=== PATIENT | male | born 1975 | race African-American/Black ===

== ENCOUNTER 2024-12-17 14:16 | Emergency (ER) | payer BC ==
[~2024-12-17] VITALS: Ht 170.2 cm; Wt 83.9 kg
[2024-12-17] MEDS ORDERED: LIDOCAINE VISCOUS 2% UD 15 ML UDC ONE (14:45)
[2024-12-17] MEDS ORDERED: KETOROLAC TROMETHAMINE 15 MG/ML VIAL ONE (14:45)
[2024-12-17] MEDS ORDERED: MAG HYDROX/AL HYDROX/SIMETH 30 ML UDC ONE (14:45)
[2024-12-17] MEDS ORDERED: FAMOTIDINE/PF INJ 20 MG/2 ML VIAL IV ONE (14:45)
[2024-12-17] MEDS: FAMOTIDINE/PF INJ 20 MG/2 ML VIAL IV ONE (14:50)
[2024-12-17] MEDS: KETOROLAC TROMETHAMINE 15 MG/ML VIAL IV ONE (14:54)
[2024-12-17] MEDS: MAG HYDROX/AL HYDROX/SIMETH 30 ML UDC PO ONE (14:54)
[2024-12-17] MEDS: LIDOCAINE VISCOUS 2% UD 15 ML UDC MM ONE (14:54)
[2024-12-17 14:59] LABS: BASOPHILS # (AUTO) 0.1 K/uL (0.0-0.2); BASOPHILS % (AUTO) 0.8 % (0.0-2.0); EOSINOPHILS # (AUTO) 0.2 K/uL (0.0-0.7); EOSINOPHILS % (AUTO) 2.1 % (0.0-6.0); HEMATOCRIT 47 % (39-51); HEMOGLOBIN 15.9 g/dL (13.5-17.5); LYMPHOCYTES # (AUTO) 2.9 K/uL (0.8-4.8); MEAN CORPUSCULAR HEMOGLOBIN 31 PG (26.0-33.0); MEAN CORPUSCULAR HGB CONC 34 g/dl (31.0-36.0); MEAN CORPUSCULAR VOLUME 93 fL (80-96); MONOCYTES # (AUTO) 0.7 K/uL (0.1-1.30); MONOCYTES % (AUTO) 8.5 % (2.0-12.0); NEUTROPHILS # (AUTO) 4.4 K/uL (1.8-8.9); NEUTROPHILS % (AUTO) 53.6 % (43.0-81.0); PLATELET COUNT (AUTO) 248 K/uL (150-450); RED BLOOD CELL COUNT(AUTO) 5.06 MIL/uL (4.5-6.0); RED CELL DISTRIBUTION WIDTH 15.1 % (11.5-15.0); WHITE BLOOD COUNT (AUTO) 8.2 K/uL (4.3-11.0)
[2024-12-17 15:11] LABS: CALCIUM, SERUM 9.5 mg/dL (8.5-10.1); CREATININE 1.3 mg/dL (0.6-1.3); POTASSIUM 4.1 mmol/L (3.5-5.1)
[2024-12-17 15:17] LABS: ALBUMIN 4.1 g/dL (3.4-5.0); BILIRUBIN,DIRECT 0.2 mg/dL (0.0-0.2); BILIRUBIN,TOTAL 0.9 mg/dL (0.2-1.0); TOTAL PROTEIN, SERUM 8.5 g/dL (6.4-8.2)
[2024-12-17 16:12] LABS: APPEARANCE,URINE CLEAR (CLEAR); BILIRUBIN,URINE NEGATIVE (NEGATIVE); BLOOD, URINE NEGATIVE Ery/uL (NEGATIVE); COLOR,URINE YELLOW (YELLOW); KETONES,URINE TRACE mg/dL (NEGATIVE); LEUKOCYTE ESTERASE ,URINE NEGATIVE (NEGATIVE); NITRITE, URINE NEGATIVE (NEGATIVE); PROTEIN,URINE NEGATIVE (NEGATIVE); UGLUCOSE NEGATIVE (NEGATIVE); UROBILINOGEN,URINE 0.2 EU/dL (0.2)
[2024-12-17 16:49] VITALS: BP 126/82; TEMP 98.4; O2SAT 99
== END 2024-12-17 16:49 | disposition home or self-care (01) ==
LOC: ER 14:32
DX: R10.12 Left upper quadrant pain (principal); I10 Essential (primary) hypertension; K21.9 Gastro-esophageal reflux disease without esophagitis; Z87.442 Personal history of urinary calculi
CPT/HCPCS: 99285; 96374; 96375; 74176; 85025; 80048; 83690; 80076; 81003; 36415; J1308; J1885

== ENCOUNTER 2025-03-16 11:14 | Emergency (ER) | payer BC ==
[~2025-03-16] VITALS: Ht 172.7 cm; Wt 83.9 kg
[2025-03-16 13:56] LABS: APPEARANCE,URINE CLEAR (CLEAR); BLOOD, URINE NEGATIVE Ery/uL (NEGATIVE); LEUKOCYTE ESTERASE ,URINE NEGATIVE (NEGATIVE); NITRITE, URINE NEGATIVE (NEGATIVE); UGLUCOSE NEGATIVE (NEGATIVE)
[2025-03-16] MEDS: IV NS 0.9% 1,000 ML BAG IV ONE ×2 (13:58→14:53)
[2025-03-16] MEDS ORDERED: KETOROLAC TROMETHAMINE INJ 30 MG/ML VIAL ONE (14:35)
[2025-03-16] MEDS: KETOROLAC TROMETHAMINE INJ 30 MG/ML VIAL IM ONE (14:54)
[2025-03-16 15:00] LABS: PLATELET COUNT (AUTO) 219 K/uL (150-450); RED BLOOD CELL COUNT(AUTO) 5.02 MIL/uL (4.5-6.0); RED CELL DISTRIBUTION WIDTH 15.2 % (11.5-15.0); WHITE BLOOD COUNT (AUTO) 8.1 K/uL (4.3-11.0)
[2025-03-16 15:06] LABS: CALCIUM, SERUM 9.3 mg/dL (8.5-10.1); CREATININE 1.1 mg/dL (0.6-1.3); SODIUM SERUM 136.0 mmol/L (136-145); UREA NITROGEN, BLOOD 7.0 mg/dL (7-18)
[2025-03-16 15:12] LABS: ASPARTATE AMINOTRANSFERASE 14.0 U/L (15-37); TOTAL PROTEIN, SERUM 8.6 g/dL (6.4-8.2)
[2025-03-16] MEDS ORDERED: KETO10TA2 PO (15:48)
[2025-03-16] MEDS ORDERED: CYCL5TAB PO (15:57)
[2025-03-16] MEDS ORDERED: IBUP-1490 PO (15:57)
[2025-03-16 16:48] VITALS: BP 138/78; TEMP 98.9; O2SAT 96
== END 2025-03-16 16:48 | disposition home or self-care (01) ==
LOC: ER 11:24
DX: R10.32 Left lower quadrant pain (principal); E11.9 Type 2 diabetes mellitus without complications; Z60.2 Problems related to living alone; Z79.899 Other long term (current) drug therapy
CPT/HCPCS: 99285; 74176; 96360; 85025; 80048; 83690; 80076; 81003; 36415; 96372; J1885; J7030; A4223